=== PATIENT | female | born 1990 | race Two or more races ===

== ENCOUNTER 2017-08-15 04:34 | Inpatient (IN) | payer MEDICAID, OTHER ==
[~2017-08-15] VITALS: Ht 154.9 cm; Wt 64.0 kg
[2017-08-15 04:30] VITALS: BP 114/84
[2017-08-15] MEDS: LACTATED RINGERS 1,000 ML IV SCH ×3 (04:30→21:17)
[2017-08-15] MEDS ORDERED: LIDOCAINE 1%, 20ML ONE (04:37)
[2017-08-15] MEDS ORDERED: OXYTOCIN 30U/ 0.9% NaCL 500ML 500 ML ONE ×2 (04:37→07:24)
[2017-08-15] MEDS ORDERED: MISOPROSTOL 200 MCG TABLET ONE ×2 (04:38→05:01)
[2017-08-15] MEDS ORDERED: OXYTOCIN 30U/ 0.9% NaCL 500ML 500 ML IV ONE (04:44)
[2017-08-15] MEDS ORDERED: TERBUTALINE 1 MG/ML, 1ML IVPush PRN ×2 (05:00)
[2017-08-15] MEDS ORDERED: FENTANYL PF 100 MCG/2ML IVPush PRN (05:00)
[2017-08-15] MEDS ORDERED: HYDROcodone/APAP 5/325 TABLET ONE (05:11)
[2017-08-15] MEDS ORDERED: IBUPROFEN 600 MG TABLET ONE (05:12)
[2017-08-15] MEDS: HYDROcodone/APAP 5/325 TABLET PO PRN ×3 (05:20→21:00)
[2017-08-15] MEDS ORDERED: HYDROcodone/APAP 5/325 TABLET PO PRN (05:30)
[2017-08-15] MEDS ORDERED: METHYLERGONOVINE 0.2 MG/ML IM PRN (05:30)
[2017-08-15] MEDS ORDERED: IBUPROFEN 600 MG TABLET PO PRN (05:30)
[2017-08-15] MEDS ORDERED: ACETAMINOPHEN 325 MG TABLET PO PRN (05:30)
[2017-08-15] MEDS ORDERED: MISOPROSTOL 200 MCG TABLET PR PRN (05:30)
[2017-08-15] MEDS: PLEASE ENTER ALLERGIES MC SCH ×6 (05:30→07:30)
[2017-08-15] MEDS ORDERED: ONDANSETRON 2MG/ML, 2ML IV PRN (05:30)
[2017-08-15 05:44] LABS: HEMATOCRIT 33.3 % (34.6-47.8)
[2017-08-15] MEDS: OXYTOCIN 30U/ 0.9% NaCL 500ML 500 ML IV SCH ×2 (07:29→15:20)
[2017-08-15 08:45] VITALS: BP 100/66
[2017-08-15] MEDS: PRENATAL VIT/IRON/FA 1 EACH TABLET PO SCH (09:00)
[2017-08-15 13:36] LABS: HEMATOCRIT 31.1 % (34.6-47.8); HEMOGLOBIN 10.6 g/dL (11.7-16.4); WHITE BLOOD COUNT 14.2 x10^3/uL (3.4-10)
[2017-08-15 14:17] VITALS: BP 107/72
[2017-08-15 18:00] VITALS: BP 104/70
[2017-08-15 20:30] VITALS: BP 110/73
[2017-08-15] MEDS: DOCUSATE 100 MG CAPSULE PO PRN (20:59)
[2017-08-16 00:20] VITALS: BP 99/64
[2017-08-16] MEDS: OXYTOCIN 30U/ 0.9% NaCL 500ML 500 ML IV SCH ×2 (01:20→11:20)
[2017-08-16 05:10] VITALS: BP 98/58
[2017-08-16] MEDS: LACTATED RINGERS 1,000 ML IV SCH ×2 (05:17→13:17)
[2017-08-16] MEDS ORDERED: DIPH,PERTUSS(ACELL),TET VAC/PF NC IM-VACC ONE ×2 (08:05→08:30)
[2017-08-16 08:15] VITALS: BP 105/66
[2017-08-16] MEDS: DOCUSATE 100 MG CAPSULE PO PRN (08:16)
[2017-08-16] MEDS: PRENATAL VIT/IRON/FA 1 EACH TABLET PO SCH (08:16)
[2017-08-16] MEDS: HYDROcodone/APAP 5/325 TABLET PO PRN (08:20)
[2017-08-16] MEDS ORDERED: IBUP-1222 PO (13:07)
[2017-08-16] MEDS ORDERED: DOCU-131 PO (13:07)
== END 2017-08-16 16:45 | disposition home or self-care (01) | DRG 775 ==
LOC: LDOP 04:34 → LDIP 04:35 → 2NW 08:29
PROVIDERS: ADMIT Obstetrics & Gynecology; ATTEND Obstetrics & Gynecology
PROC: 10E0XZZ Delivery of Products of Conception, External Approach (ICD-10-PCS; principal; 2017-08-15)
DX: O62.3 Precipitate labor (principal); Z23 Encounter for immunization; Z37.0 Single live birth; Z3A.38 38 weeks gestation of pregnancy
CPT/HCPCS: 36415; 85025; 86850; 86900; 90715; J2590; J7120